=== PATIENT | female | born 1990 | race Caucasian/White ===

== ENCOUNTER 2016-09-06 18:37 | Emergency (ER) | payer MEDICAID ==
[2016-09-06 18:59] VITALS: BP 137/70
[2016-09-06] MEDS ORDERED: Ketorolac 30 MG/ML SDV IVPUSH ONE (19:12)
[2016-09-06] MEDS ORDERED: Lactated Ringers 1,000 ML IV SCH (19:15)
[2016-09-06] MEDS ORDERED: Metoclopramide 10 MG/2 ML SDV IVPUSH ONE (19:36)
[2016-09-06] MEDS ORDERED: LORazepam 2 MG/ML MDV IVPUSH ONE (20:18)
[2016-09-06] MEDS ORDERED: Iopamidol 755 Mg/ML 100 ML Bottle IV ONE (20:30)
[2016-09-06] MEDS ORDERED: Acetaminophen/HYDROcodone 325-5 MG Tab PO ONE (22:52)
--- NOTE | 2016-09-10 10:24 | ER ---
DATE SEEN: 09/06/2016 TIME SEEN: The patient was seen at 1850 hours. 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 She notes she has been lying flat to decrease abdominal discomfort. She has 8/10 discomfort. One week ago, she was in [place], was in law school competition for [employer] [place]. Last menstrual period 08/24/2016. She uses control pills. She is sexually active. She has trace of lower lip itching. Mother has had hiatus hernia surgery 20 years ago. The patient's mother has IBS. The patient denies blood in her stool, fever, or chills. Does feel weak. She has not had any associated vomiting with the diarrhea. She denies back pain, flank pain, previous history of renal stones, frequency, urgency, and dysuria. Last episode of diarrhea was approximately 2 hours ago. She has taken Tylenol for abdominal discomfort without resolution. CURRENT MEDICATIONS: Ethinyl estradiol/drospirenone (Ocella) 3 mg-0.03 mg 1 tablet daily. ALLERGIES: Citric acid from Renacidin. Codeine causes nausea. Gluconic acid, rash. Gluconate, rash. Magnesium carbonate, rash. All the latter three - gluconic acid, gluconate, and magnesium carbonate are a part of Renacidin. They all cause rashes. REVIEW OF SYSTEMS: HEENT: Denies headache, compromised vision, sore throat, cough, sinus congestion, or neck stiffness. CARDIORESPIRATORY: Denies chest pain, shortness of breath, cough, dyspnea, orthopnea, or pedal edema. GI: See above. No history of GERD, ulcer disease, acid peptic disease, cholelithiasis, or fatty food intolerance. : Denies frequency, urgency, or dysuria. MUSCULOSKELETAL: Mild aches. No history of decreased strength. NEUROLOGIC: Negative. No headaches or seizures. PSYCHIATRIC: Negative for depression. PHYSICAL EXAMINATION: VITAL SIGNS: Blood pressure 137/70, heart rate 84, respirations 18, oxygen saturation 100%, temperature is 36.8 degrees centigrade. GENERAL: The patient is alert, mildly overweight. PERRLA intact. Pharynx without abnormality. Mild dry oral mucosa. NECK: No thyromegaly, cervical adenopathy, or masses. No bruits. LUNGS: Clear to auscultation without rales, rhonchi, or wheezes. HEART: S1, S2. No murmur. No tachycardia. No orthostatic hypotension. ABDOMEN: Mild generalized abdominal discomfort. Moderate mid umbilical level, right mid abdomen discomfort. Mild right upper quadrant discomfort. Mild left upper quadrant discomfort. No right lower quadrant discomfort or left lower quadrant discomfort. There is just mild left lower quadrant discomfort. More left lower quadrant discomfort than right upper quadrant discomfort. Heel tap, no rebound noted. Pelvic not performed. CAT scan was performed, which was negative except for mesenteric adenopathy. No masses. No cholelithiasis. No thickened colon. No partial bowel obstruction. LABORATORY STUDIES: White count 4,900, PMNs 76, lymphocytes 15, monos 9, hemoglobin 14.9, platelets 221,000. RBCs indices are normal. Complete metabolic panel; sodium 132, potassium low normal 3.6, chloride 105, bicarb 20 - mildly low secondary to diarrhea and loss of bicarbonate, that is associated with loss of potassium. She has mild low normal potassium. Remainder of automated chemistry normal except for slight decreased calcium at 8.5, normal 8.6-10.2. Urinalysis is negative with moderate squamous epithelial cells, few bacteria. HCG is negative. ASSESSMENT: Mild enteritis. Moderate mesenteric adenopathy. Mild colitis. No evidence for obstructive bowel lesion or appendicitis. The patient dismissed to gradually increase her diet as tolerated. Start with Pedialyte for at least 24 hours. Avoid excessive food ingestion with the in 2 days. Follow up with doctor in a week if not improved. ADDITIONAL COMMENT: The patient desired to have pain medicine for her abdominal discomfort. I was somewhat reluctant to provided this for her. It is felt that she has new onset of narcotic allergy with the angioedema in the lower lip. She was advised to use Lomotil and/or Imodium. I chose not to provide either medicine because I felt it would prolong the diarrhea. OTHER DIAGNOSES: Possible norovirus. Angioedema from Dilaudid, mild, lower lip. The patient advised to follow up with doctor in 24 to 72 hours if markedly worse. /[id number] EFRAIN/JUNL
== END 2016-09-06 22:55 | disposition home or self-care (01) ==
LOC: FB.ED 18:37
DX: K52.9 Noninfective gastroenteritis and colitis, unspecified (principal); R59.0 Localized enlarged lymph nodes; Z88.8 Allergy status to other drugs, medicaments and biological substances
CPT/HCPCS: 36415; 74177; 80053; 81001; 81025; 83605; 85025; 96361; 96374; 96375; 99284; A9270; J1885; J2060; J2765; J7120; Q9967